=== PATIENT | female | born 1970 | race Caucasian/White ===

== ENCOUNTER 2017-07-31 21:54 | Emergency (ER) | payer OTHER ==
[~2017-07-31] VITALS: Ht 160 cm; Wt 140.0 kg
[~2017-07-31 21:54] MED LIST: ABIL5TAB6 PO; BUPR100T4 PO; CHOL10008 PO; CHOL1CAP34 PO; FLUT50SP EACH NARE; LEVO200T4 PO; LISI40TA PO; METF1000 PO; ZOLO100T PO; ZOLP10TA3 PO
[2017-07-31 22:04] VITALS: BP 156/70; PULSE 76; RESP 18; TEMP 98.5; O2SAT 97
[2017-07-31] MEDS ORDERED: CEPH-460 PO (22:58)
[2017-07-31] MEDS ORDERED: CEPHALEXIN MONOHYDRATE 500 MG CAP PO ONE (23:00)
--- NOTE | 2017-07-31 23:08 | PD ---
HPI Chief Complaint: Lump, Cyst, Hernia Time Seen by Provider: 22:56 Travel History International Travel<30 days: No Contact w/Intl Traveler<30days: No Traveled to known affect area: No History of Present Illness HPI 46-year-old white female presents emergency department with complaints of swelling in the left side of her neck under her left jaw for the past 24 hours. She states that she had first noticed it earlier today. She states that she felt that the area has gotten twice as large in the last 6 hours. She does not recall any precipitating event. There is no alleviating or aggravating activity. She does not associate this with eating. She has not been sick. She denies any fever chills. Denies any ear pain, sore throat. He does state that she does have some mild discomfort up into her left jaw but she does not have any single tooth pain. Patient has had a similar episode a few years ago was placed on antibiotics with resolution. She was told that if it was not treated aggressively she could have airway compromise. PFSH Past Medical History Diabetes: Yes Patient Takes Glucophage: No Diminished Hearing: No Medical other: Yes (KIDNEY PROBLEMS) Immunizations Current: Yes Thyroid Disease: Yes ?: Not Past Surgical History Tonsillectomy: Yes Social History Alcohol Use: No Tobacco Use: No Substance Use: No Allergies-Medications (Allergen,Severity, Reaction): Coded Allergies: Sulfa (Sulfonamide Antibiotics) (Verified Allergy, Mild, Rash, 07/31/17) sulfamethoxazole (Verified Allergy, Mild, rash, 07/31/17) trimethoprim (Verified Allergy, Mild, rash, 07/31/17) Reported Meds & Prescriptions Reported Meds & Active Scripts Active Keflex (Cephalexin) 500 Mg Capsule 500 Mg PO TID 7 Days Lisinopril 40 Mg Tab 40 Mg PO DAILY Metformin (Metformin HCl) 1,000 Mg Tab 1,000 Mg PO BIDPC With meals Vitamin D3 (Cholecalciferol) 50,000 Unit Cap 50,000 Units PO Q7D Levothyroxine (Levothyroxine Sodium) 200 Mcg Tab 200 Mcg PO DAILY Reported Abilify (Aripiprazole) 5 Mg Tab 5 Mg PO DAILY Vitamin D3 (Cholecalciferol) 1,000 Unit Cap 1,000 Units PO DAILY Fluticasone Nasal [place] 50 Mcg/Act Naspr 50 Mcg EACH NARE BID 50 mcg/spray Bupropion HCl 100 Mg Tab 300 Mg PO DAILY Zoloft (Sertraline HCl) 100 Mg Tab 100 Mg PO DAILY Zolpidem (Zolpidem Tartrate) 10 Mg Tab 10 Mg PO HS PRN Review of Systems General / Constitutional: No: Fever, Chills Eyes: No: Visual changes HENT: Positive: Neck Pain, Masses, No: Headaches, Sore Throat, Rhinorrhea, Congestion, Neck Stiffness, Gingival Bleeding, Dental Difficulties, Ear Discharge, Earache Cardiovascular: No: Chest Pain or Discomfort Respiratory: No: Shortness of Breath Gastrointestinal: No: Abdominal Pain Genitourinary: No: Dysuria Musculoskeletal: No: Pain Skin: No Rash Neurologic: No: Weakness Psychiatric: No: Depression Endocrine: No: Polydipsia Hematologic/Lymphatic: No: Easy Bruising Physical Exam Narrative GENERAL: Well-developed, well-nourished in no acute distress. Nontoxic appearing. HEAD: Normocephalic, atraumatic. EYES: Pupils equal round and reactive. Extraocular motions intact. No scleral icterus. No injection or drainage. ENT: TMs clear without erythema. The external auditory canals clear. Nose: clear . Posterior pharynx is pink and moist. No tonsillar edema or exudate. Uvula midline. Airway patent. The intraoral cavity does not reveal any obvious dental caries. She does not have any significant periodontal disease. She does have some recession. No intraoral mass. The tongue is normal. I do not see any edema of the floor of the mouth. She phonates normally. I do not see any parotid swelling. NECK: Trachea midline.Supple, nontender, moves head freely. No central bony tenderness or spasm. Patient has a tender solitary mass in her left submandibular region in the area of a salivary duct gland. I do not feel any other significant adenopathy. It is mobile and mildly tender. CARDIOVASCULAR: Regular rate and rhythm without murmurs, gallops, or rubs. RESPIRATORY: Clear to auscultation. Breath sounds equal bilaterally. No wheezes , rales, or rhonchi. GASTROINTESTINAL: Abdomen soft, non-tender, nondistended. No hepato-splenomegaly , or palpable masses. No guarding. EXTREMITIES: No clubbing, cyanosis, or edema. No joint tenderness, effusion, or edema noted. BACK: Nontender without deformity or crepitance. No flank tenderness. Data Data Last Documented VS Vital Signs Date Time Temp Pulse Resp B/P (MAP) Pulse Ox O2 Delivery O2 Flow Rate FiO2 07/31/17 22:04 98.5 76 18 156/70 (98) 97 Orders Orders Cephalexin (Keflex) (07/31/17 23:00) Ed Discharge Order (07/31/17 22:57) MDM Medical Decision Making Medical Screen Exam Complete: Yes Emergency Medical Condition: Yes Medical Record Reviewed: Yes Differential Diagnosis Differential diagnosis: Parotiditis, sialadenitis, dental abscess, Oliverio's angina Narrative Course Patient is given Keflex 500 mg p.o. I suspect this is sialadenitis Diagnosis Primary Impression: Sialadenitis Patient Instructions: General Instructions Additional Instructions: Rest. Warm compresses. Massaging the area gently. Ibuprofen for pain. Keflex. Suck on lemon heads. Follow-up with your doctor in next 2 days for recheck. Return to the ER if any problems. Med/Other Pt SpecificInfo: Prescription(s) given Scripts Cephalexin (Keflex) 500 Mg Capsule 500 MG PO TID for Infection for 7 Days, CAP 0 Refills Prov: Gonzalo Whitlock MD 07/31/17 Disposition: 01 DISCHARGE HOME Condition: Stable Taj Rowan Jul 31, 2017 23:08
== END 2017-07-31 23:38 | disposition home or self-care (01) ==
LOC: NEPD 21:54
DX: K11.20 Sialoadenitis, unspecified (principal); E07.9 Disorder of thyroid, unspecified; E11.9 Type 2 diabetes mellitus without complications; Z79.84 Long term (current) use of oral hypoglycemic drugs
CPT/HCPCS: 99283